=== PATIENT | female | born 1970 | race Caucasian/White ===

== ENCOUNTER 2024-01-06 16:57 | Emergency (ER) | payer MEDICARE, SELFPAY ==
[2024-01-06] VITALS (11 sets, daily range): BP systolic 135–152; BP diastolic 93–102; PULSE 51–65; RESP 14–25; TEMP 36.5; O2SAT 95–99; BMI 27.8
--- NOTE | 2024-01-06 20:13 | PC.NURSE ---
Pt recently recovered from COVID. Has had N/V now headache
--- NOTE | 2024-01-06 20:17 | ED.HA ---
HPI - Headache General Chief Complaint: Headache Stated Complaint: migraine Time Seen by Provider: 01/06/24 20:17 Mode of arrival: Ambulatory History of Present Illness HPI Narrative: 53-year-old woman with a history of migraine headache, on disability for chronic stomach issues/diarrhea predominant irritable bowel syndrome, hypertension, chronic low back pain diagnosed with COVID 2 weeks ago still with slight cough but no fevers, mild body aches presents with migraine that is getting worse. She currently is on Topamax for migraine prevention. She is nauseated but has not been vomiting. No chest pain or palpitations. No change to her baseline abdominal pain and chronic diarrhea Related Data Allergies Allergy/AdvReac Type Severity Reaction Status Date / Time gabapentin Allergy Verified 01/06/24 17:22 methotrexate Allergy Verified 01/06/24 17:22 Review of Systems Review of Systems Narrative: Pertinent positive and negative findings as per HPI Patient History Medical History (Updated 01/07/24 @ 02:08 by Giana Mercado MD) Anxiety Hypertension Irritable bowel syndrome Migraine Social History Smoking Status: Current every day smoker Smoking Status: Current every day smoker tobacco type: vaping Substance Use Type: does not use Exam Initial Vital Signs Initial Vital Signs: Vital Signs Temperature 97.7 F 01/06/24 17:17 Pulse Rate 65 01/06/24 17:17 Respiratory Rate 16 01/06/24 17:17 Blood Pressure 135/95 H 01/06/24 17:17 Pulse Oximetry 96 01/06/24 17:17 Oxygen Delivery Method Room Air 01/06/24 17:17 General: Appears to be mildly ill, photophobia but in no acute distress. Able to give a complete and coherent history. Well-nourished well-developed HEENT: Moist mucous membranes, normal sclera with reactive pupils, Neck: No cervical adenopathy Respiratory: Lungs are clear to auscultation, no wheezing no rales no rhonchi. Full and symmetrical air movement Cardiac: Regular rate and rhythm no murmurs no bruits Abdomen: Soft, nontender, good bowel tones, no flank pain Skin: Warm and dry, no rashes Neurologic: Grossly neurologically intact with no obvious asymmetries or abnormalities Psych: Cooperative, appropriate insight and affect Course Orders Ordered: ED Orders 01/06/24 20:15 CBC Auto Diff [Complete Blood Count AUTO DIFF] Stat CMP [Comprehensive Metabolic Panel] Stat EKG-12 Lead Stat Discontinued Medications Dexamethasone (Dexamethasone 10 Mg/Ml Vial) 10 mg IV NOW ONE Stop: 01/07/24 00:53 Last Admin: 01/07/24 01:04 Dose: 10 mg Documented By: Diphenhydramine HCl (Diphenhydramine 50 Mg/Ml Vial) 25 mg IV NOW ONE Stop: 01/07/24 00:53 Last Admin: 01/07/24 01:07 Dose: 25 mg Documented By: Sodium Chloride (Normal Saline 0.9%) 1,000 mls @ 1,000 mls/hr IV BOLUS ONE Stop: 01/07/24 01:51 Last Infusion: 01/07/24 02:04 Dose: Infused Documented By: Admin: 01/07/24 01:04 Dose: 1,000 mls/hr Documented By: Ketorolac Tromethamine (Ketorolac 30 Mg/Ml Vial) 15 mg IV NOW ONE Stop: 01/07/24 00:53 Last Admin: 01/07/24 01:09 Dose: 15 mg Documented By: Potassium Chloride (Potassium Chloride 20 Meq Tab) 40 meq PO NOW ONE Stop: 01/07/24 00:53 Last Admin: 01/07/24 01:30 Dose: 40 meq Documented By: Prochlorperazine (Prochlorperazine 10 Mg/2 Ml Vial) 10 mg IV NOW ONE Stop: 01/07/24 00:53 Last Admin: 01/07/24 01:07 Dose: 10 mg Documented By: Vital Signs Vital signs: Vital Signs - 8 hr 01/06/24 20:30 01/06/24 21:00 01/06/24 21:30 Pulse Rate 53 L 52 L 52 L Respiratory Rate 25 H 18 14 Blood Pressure Pulse Oximetry 96 95 95 Oxygen Delivery Method 01/06/24 22:04 01/06/24 22:30 01/06/24 23:02 Pulse Rate 58 L 51 L Respiratory Rate Blood Pressure Pulse Oximetry 98 96 99 Oxygen Delivery Method Room Air Room Air Room Air 01/06/24 23:30 01/06/24 23:37 01/06/24 23:37 Pulse Rate 53 L 56 L Respiratory Rate Blood Pressure 152/93 H Pulse Oximetry 98 96 Oxygen Delivery Method Room Air 01/07/24 00:08 01/07/24 00:13 01/07/24 00:13 Pulse Rate 55 L 52 L Respiratory Rate 23 Blood Pressure 139/84 Pulse Oximetry 95 94 Oxygen Delivery Method 01/07/24 00:22 01/07/24 00:30 01/07/24 00:33 Pulse Rate 56 L 53 L Respiratory Rate 20 Blood Pressure 139/84 133/85 Pulse Oximetry 93 92 Oxygen Delivery Method Room Air Room Air 01/07/24 00:33 01/07/24 01:03 01/07/24 01:07 Pulse Rate 55 L 60 89 Respiratory Rate 17 Blood Pressure 133/85 Pulse Oximetry 97 98 Oxygen Delivery Method Room Air Room Air 01/07/24 01:30 01/07/24 01:51 01/07/24 01:51 Pulse Rate 79 59 L Respiratory Rate Blood Pressure 157/97 H Pulse Oximetry 97 98 Oxygen Delivery Method Room Air 01/07/24 02:00 Pulse Rate 74 Respiratory Rate Blood Pressure Pulse Oximetry 98 Oxygen Delivery Method MDM - Headache Lab Data 01/06/24 20:15 01/06/24 20:15 Labs: Lab Results 01/06/24 Range/Units 20:15 WBC 9.1 (4.5-11.0) X10^3/uL RBC 5.18 (4.0-5.2) X10^6/uL Hgb 15.6 (12.0-16.0) g/dL Hct 45.3 (36-46) % MCV 87.4 (80-100) fL MCH 30.1 (26-34) PG MCHC 34.5 (30-36) % RDW 13.7 (11.6-14.8) % Plt Count 205 (150-400) X10^3/uL Neut % (Auto) 41.3 L (50-75) % Lymph % (Auto) 48.7 H (25-40) % [place] % (Auto) 8.7 (3-14) % Eos % (Auto) 0.4 L (2-4) % Baso % (Auto) 0.9 (0-2) % Neut # (Auto) 3800 (9809-7098) /uL Lymph # (Auto) 4400 (0724-9653) /uL [place] # (Auto) 800 (0-900) /uL Eos # (Auto) 0 (0-450) /uL Baso # (Auto) 100 (0-100) /uL Sodium 138 (137-145) mmol/L Potassium 3.1 L (3.4-5.1) mmol/L Chloride 108 H (98-107) mmol/L Carbon Dioxide 24 (22-32) mmol/L BUN 12 (7-17) mg/dL Creatinine 0.71 (0.52-1.04) mg/dL Estimated GFR > 60 (>60) mL/min BUN/Creatinine Ratio 16.9 (6-22) Glucose 105 H (70-100) mg/dL Calcium 9.1 (8.4-10.2) mg/dL Total Bilirubin 0.7 (0.2-1.3) mg/dL AST 23 (14-36) IU/L ALT 22 (<35) IU/L Alkaline Phosphatase 79 (38-126) U/L Total Protein 7.8 (6.3-8.2) g/dL Albumin 4.1 (3.5-5.0) g/dL Globulin 3.7 (1.7-4.1) g/dL Albumin/Globulin Ratio 1.1 (1.0-2.8) MDM Narrative Medical decision making narrative: CC: Migraine Complicating co-morbidities: Currently recovering from COVID, chronic back pain, chronic abdominal pain with diarrhea Data collected from: patient Social determinants of health that may influence the patients condition: Patient lives in [place] Medical records reviewed: Medical records not currently available Differential considered: COVID headache, dehydration, migraine Exam documented above, pertinent findings include: Exam is essentially benign aside from mild photophobia Lab Test results independently reviewed as above. Pertinent findings: CBC is unremarkable Chemistries show potassium low at 3.1 which she states is a chronic issue for her. Remainder of chemistries are unremarkable Independently reviewed EKG: EKG shows sinus bradycardia at a rate of 57. Normal intervals, normal axis. No acute ischemic changes Treatments: Patient is given a L of fluid, Compazine, Benadryl, Decadron, Toradol and oral potassium. Re-evaluations: Patient states that her headache is better but is requesting Dilaudid. When she was told that we would not be treating her migraine headache with narcotic medication she felt that discharge would be safe and appropriate Discussion: 53-year-old woman with a history of chronic migraine presents with significant migraine at the end of a COVID infection. She is mildly hypokalemic presumably secondary to her chronic diarrhea. Nausea has been controlled the point she feels she can take an oral potassium supplement. Headache has improved slightly but she is still requesting Dilaudid. I have declined this. At this point there is no indication of life-threatening abnormality, sepsis, reasons for additional imaging studies or hospitalization. Encouraged her to continue with fluids, Topamax to continue to prevent her headaches and follow up with her primary care provider Discharge Plan Departure Patient Disposition: Home Clinical Impression: Migraine Qualifiers: Migraine type: unspecified Status migrainosus presence: without status migrainosus Intractability: not intractable Qualified Code(s): G43.909 - Migraine, unspecified, not intractable, without status migrainosus Instructions: DI for Migraine Activity Restrictions/Additional Instructions: Thank you for coming in tonight COVID is rather notorious for horrible headaches and can certainly exacerbate migraine. I am glad that your beginning to feel that you are getting over your current COVID infection and I am sorry that you are suffering from this headache. In the emergency department your lab work was quite reassuring. Your potassium level was slightly low however this can be found with chronic diarrhea as you described You are given a cocktail of medications to help with your migraine including a L of fluid, IV Compazine, Toradol, dexamethasone and Benadryl. I did give you a potassium pill because her potassium was slightly low. Unfortunately, we have found that using narcotics to help with migraine headaches tends to cause more rebound and is not beneficial and not clinically indicated. Using 400 mg of ibuprofen (2 [id number] pills) and 1 Tylenol every 6 hours can be very helpful in controlling pain. Please do continue your Topamax for headache prevention If you find that you are getting worse or develop any new symptoms, please feel free to return to the emergency department for further evaluation. Referrals: Colt Calderón DO [Primary Care Provider] - Stand Alone Forms: Patient Portal/API
[2024-01-06 20:28] LABS: Add Manual Diff / Slide Review NO; Basophils Absolute Auto 100 /uL (0-100); Basophils Percent Auto 0.9 % (0-2); Eosinophils Absolute Auto 0 /uL (0-450); Eosinophils Percent Auto 0.4 % (2-4); Hematocrit 45.3 % (36-46); Hemoglobin 15.6 g/dL (12.0-16.0); Lymphocytes Absolute Auto 4400 /uL (1100-4500); Lymphocytes Percent Auto 48.7 % (25-40); Mean Corpuscular HGB Conc 34.5 % (30-36); Mean Corpuscular Hemoglobin 30.1 PG (26-34); Mean Corpuscular Volume 87.4 fL (80-100); Monocytes Absolute Auto 800 /uL (0-900); Monocytes Percent Auto 8.7 % (3-14); Neutrophils Absolute Auto 3800 /uL (1500-7000); Neutrophils Percent Auto 41.3 % (50-75); Platelet Count 205 X10^3/uL (150-400); Red Blood Cell Count 5.18 X10^6/uL (4.0-5.2); Red Cell Distribution Width 13.7 % (11.6-14.8); White Blood Cell Count 9.1 X10^3/uL (4.5-11.0)
[2024-01-06 20:49] LABS: Alanine Aminotransferase 22 IU/L (<35); Albumin 4.1 g/dL (3.5-5.0); Albumin Globulin Ratio 1.1 (1.0-2.8); Alkaline Phosphatase 79 U/L (38-126); Aspartate Aminotransferase 23 IU/L (14-36); BUN Creatinine Ratio 16.9 (6-22); Bilirubin Total 0.7 mg/dL (0.2-1.3); Blood Urea Nitrogen 12 mg/dL (7-17); Calcium 9.1 mg/dL (8.4-10.2); Carbon Dioxide 24 mmol/L (22-32); Chloride 108 mmol/L (98-107); Estimated Glomerular Filt Rate > 60 mL/min (>60); Globulin 3.7 g/dL (1.7-4.1); Glucose 105 mg/dL (70-100); HEMOLYSIS < 15 (0-50); Potassium 3.1 mmol/L (3.4-5.1); Sodium 138 mmol/L (137-145); Total Protein 7.8 g/dL (6.3-8.2)
[2024-01-07] VITALS (10 sets, daily range): BP systolic 133–157; BP diastolic 84–97; PULSE 52–89; RESP 17–23; O2SAT 92–98
[2024-01-07] MEDS: SODIUM CHLORIDE 0.9% 1,000 ML 1000 ML IV (01:04)
[2024-01-07] MEDS: DEXAMETHASONE 10 MG/ML VIAL IV (01:04)
[2024-01-07] MEDS: PROCHLORPERAZINE 10 MG/2 ML VIAL IV (01:07)
[2024-01-07] MEDS: diphenhydrAMINE 50 MG/ML VIAL 25 MG IV (01:07)
[2024-01-07] MEDS: KETOROLAC 30 MG/ML VIAL 15 MG IV (01:09)
[2024-01-07] MEDS: POTASSIUM CHLORIDE 20 MEQ TAB 40 MEQ PO (01:30)
== END 2024-01-07 02:13 | disposition home or self-care (01) ==
PROVIDERS: Emergency Provider Emergency Medicine; Family Provider Specialist; PCP Family Medicine
DX: G43.909 Migraine, unspecified, not intractable, without status migrainosus (principal); R00.1 Bradycardia, unspecified; Z86.16 Personal history of COVID-19
CPT/HCPCS: 36415; 80053; 85025; 93005; 93010; 96361; 96374; 96375; 99284; J0780; J1100; J1200; J1885